=== PATIENT | female | born 1965 | race Caucasian/White ===

== ENCOUNTER 2018-06-23 13:53 | Emergency (ER) | payer OTHER ==
[2018-06-23] MEDS ORDERED: Ibuprofen 600 MG Tab PO ONE (14:50)
--- NOTE | 2018-06-23 14:54 | EDM.PDOC ---
ED HPI GENERAL MEDICAL PROBLEM - General Chief Complaint: Lower Extremity Injury/Pain Stated Complaint: LEFT KNEE Time Seen by Provider: 06/23/18 14:51 Source of Information: Reports: Patient History Limitations: Reports: No Limitations - History of Present Illness INITIAL COMMENTS - FREE TEXT/NARRATIVE: Slipped on wet floor at work, twisted left knee, fell to ground. Complains of lateral left knee pain. Onset: Today Location: Reports: Lower Extremity, Left Quality: Reports: Dull Severity: Moderate Worsens with: Reports: Other (ambulation), Movement Associated Symptoms: Reports: No Other Symptoms Treatments SITE MEDICAL DIRECTOR: Reports: Cold Therapy L knee Pain Score (Numeric/FACES): 9 - Related Data Allergies Allergy/AdvReac Type Severity Reaction Status Date / Time No Known Allergies Allergy Verified 06/23/18 13:59 Home Meds: Home Meds Acetaminophen/HYDROcodone [Apison 325-5 MG] 1 - 2 tab PO Q6H PRN #20 tab [Rx] Norethindrone-Ethinyl Estrad [Ortho-Novum 1-35-28 Tablet] 1 tab ASDIRECTED 06/23 [History] 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 History: Musculoskeletal History: Reports: None Neurological History: Reports: Migraines - Infectious Disease History Infectious Disease History: Reports: Chicken Pox - Past Surgical History Musculoskeletal Surgical History: Reports: Other (See Below) Other Musculoskeletal Surgeries/Procedures:: R soot, L wrist Social & Family History - Family History Family Medical History: Noncontributory - Tobacco Use Smoking Status *Q: Never Smoker - Caffeine Use Caffeine Use: Reports: Soda - Recreational Drug Use Recreational Drug Use: No Review of Systems - Review of Systems Review Of Systems: ROS reveals no pertinent complaints other than HPI. ED EXAM, GENERAL - Physical Exam Exam: See Below Exam Limited By: No Limitations General Appearance: Alert, WD/WN, No Apparent Distress Ears: Normal External Exam Nose: Normal Inspection Throat/Mouth: No Airway Compromise Head: Atraumatic, Normocephalic Neck: Full Range of Motion Respiratory/Chest: No Respiratory Distress Peripheral Pulses: 2+: Dorsalis Pedis (L) Extremities: Normal Capillary Refill, Other (tenderness to left lateral knee, no deformity, no laxity) Neurological: Alert, No Motor/Sensory Deficits Psychiatric: Normal Affect, Normal Mood Skin Exam: Warm, Dry, Intact, Normal Color ED TRAUMA EXTREMITY PROCEDURES - Splinting Left Lower Extremity Splint Site: left knee Pre-Procedure NV Status: Normal Post-Procedure NV Status: Normal Splint Material: Other (knee immobilizer) Splint Design: Knee Immobilizer Applied & Form Fitted By: Nurse Provider Post-Splint Application NV Check: NV Status Normal, Good Position Complications: No Course - Vital Signs Last Recorded V/S: Last Vital Signs Temp 36.5 C 06/23/18 13:53 Pulse 79 06/23/18 13:53 Resp 18 06/23/18 13:53 BP 114/54 L 06/23/18 13:53 Pulse Ox 100 06/23/18 13:53 - Orders/Labs/Meds Orders: Active Orders 24 hr Category Date Time Status Knee 3V Lt [CR] Stat Exams 06/23/18 14:50 Taken Meds: Medications Discontinued Medications Generic Name Dose Route Start Last Admin Trade Name Freq PRN Reason Stop Dose Admin Ibuprofen 600 mg 06/23/18 14:50 06/23/18 15:04 Motrin PO 06/23/18 14:51 600 mg ONETIME ONE Administration - Radiology Interpretation Free Text/Narrative:: Left Knee XR: lucenies in the anterior aspect of the proximal tibia diametaphysis consistent with acute nondisplaced fracture. No dislocation. Moderate-sized joint effusion in the suprapatellar bursa. Departure - Departure Time of Disposition: 16:48 Disposition: Home, Self-Care 01 Condition: Good Clinical Impression: Fracture of proximal end of tibia Qualifiers: Encounter type: initial encounter Fracture type: closed Fracture morphology: other fracture Laterality: left Qualified Code(s): S82.192A - Other fracture of upper end of left tibia, initial encounter for closed fracture - Discharge Information *PRESCRIPTION DRUG MONITORING PROGRAM REVIEWED*: Yes *COPY OF PRESCRIPTION DRUG MONITORING REPORT IN PATIENT ANNABELLA: Not Applicable Prescriptions: Acetaminophen/HYDROcodone [Apison 325-5 MG] 1 - 2 tab PO Q6H PRN #20 tab PRN Reason: Pain Instructions: Crutch Use, Adult, [id number], How to Use a Knee Immobilizer, [id number], Tibial Fracture, Adult Referrals: Heath Michael MD [Primary Care Provider] - Villeda,Mayo D, DO [Physician] - Forms: ED Department Discharge, ED Return to Work/School Form Additional Instructions: Fill prescription for Apison and take as directed. Ice the area affected. Elevate the leg. Do not bear weight on the left leg. Follow up with Dr. Mayo Villeda (orthopedic surgery) in 2 days. Return to the ER if symptoms worsen. - My Orders Last 24 Hours: My Active Orders 06/23/18 14:50 Knee 3V Lt [CR] Stat - Assessment/Plan Last 24 Hours: My Active Orders 06/23/18 14:50 Knee 3V Lt [CR] Stat
[2018-06-23] MEDS ORDERED: Acetaminophen/HYDROcodone 325-5 MG Tab PO ONE (17:08)
== END 2018-06-23 17:28 | disposition home or self-care (01) ==
LOC: FB.ED 13:53
DX: S82.192A Other fracture of upper end of left tibia, initial encounter for closed fracture (principal); W01.0XXA Fall on same level from slipping, tripping and stumbling without subsequent striking against object, initial encounter; X50.1XXA Overexertion from prolonged static or awkward postures, initial encounter; Y99.0 Civilian activity done for income or pay
CPT/HCPCS: 29505; 73562-LT; 99283; A9270-GY

== ENCOUNTER 2018-07-01 18:00 | Emergency (ER) | payer OTHER ==
--- NOTE | 2018-07-01 18:39 | EDM.PDOC ---
ED HPI GENERAL MEDICAL PROBLEM - General Chief Complaint: Lower Extremity Injury/Pain Stated Complaint: L LEG COLD, POST BREAK Time Seen by Provider: 07/01/18 18:15 Source of Information: Reports: Patient History Limitations: Reports: No Limitations - History of Present Illness INITIAL COMMENTS - FREE TEXT/NARRATIVE: c/o cool foot pt slipped on liquid on floor at work 8d ago, had used a long leg immobilizer for L fibula fx, then changed to hinged knee brace by Dr Villeda several days later using crutches and NWB as instructed, has f/u apt in 8d foot felt cool and she became worried, wearing brace in bed altho told she does not need to, takes brace off to shower brace fitting well, is on her feet at work, not working currently Left Knee Pain Score (Numeric/FACES): 2 - Related Data Allergies Allergy/AdvReac Type Severity Reaction Status Date / Time No Known Allergies Allergy Verified 07/01/18 18:29 Home Meds: Home Meds Acetaminophen/HYDROcodone [[place] 325-5 MG] 1 - 2 tab PO Q6H PRN #20 tab [Rx] Norethindrone-Ethinyl Estrad [Ortho-Novum 1-35-28 Tablet] 1 tab ASDIRECTED 06/23 [History] Aspirin [Ecotrin] 325 mg PO ASDIRECTED 07/01/18 [History] Past Medical History [employer] AD[employer]ISTR[employer] 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: Musculoskeletal History: Reports: None Neurological History: Reports: Migraines - Infectious Disease History Infectious Disease History: Reports: Chicken Pox - Past Surgical History Musculoskeletal Surgical History: Reports: Other (See Below) Other Musculoskeletal Surgeries/Procedures:: R soot, L wrist Social & Family History - Family History Family Medical History: Noncontributory - Caffeine Use Caffeine Use: Reports: Soda Review of Systems - Review of Systems Review Of Systems: See Below Constitutional: Reports: No Symptoms Eyes: Reports: No Symptoms Ears: Reports: No Symptoms Nose: Reports: No Symptoms Mouth/Throat: Reports: No Symptoms Respiratory: Reports: No Symptoms Cardiovascular: Reports: No Symptoms GI/Abdominal: Reports: No Symptoms Genitourinary: Reports: No Symptoms Musculoskeletal: Reports: Leg Pain Skin: Reports: No Symptoms Neurological: Reports: No Symptoms Psychiatric: Reports: No Symptoms ED EXAM, GENERAL - Physical Exam Exam: See Below Exam Limited By: No Limitations General Appearance: Alert, WD/WN, No Apparent Distress Extremities: Other (2+ DP pulses b/l, feet slightly cool without socks or shoes , L fibula minimal tender at proximal 1/3, brace in place over jeans and fitting well) Course - Vital Signs Last Recorded V/S: Last Vital Signs Temp 35.8 C 07/01/18 18:00 Pulse 73 07/01/18 18:00 Resp 16 07/01/18 18:00 BP 132/74 07/01/18 18:00 Pulse Ox 100 07/01/18 18:00 Departure - Departure Time of Disposition: 18:33 Disposition: Home, Self-Care 01 Condition: Good Clinical Impression: Fibula fracture Qualifiers: Encounter type: subsequent encounter Fracture type: closed Laterality: left - Discharge Information *PRESCRIPTION DRUG MONITORING PROGRAM REVIEWED*: Not Applicable *COPY OF PRESCRIPTION DRUG MONITORING REPORT IN PATIENT ANNABELLA: Not Applicable Instructions: How to Use a Knee Brace Referrals: Heath Michael MD [Primary Care Provider] - Additional Instructions: Continue aspirin 325 mg 1 tab daily. As needed, may also take acetaminophen 500 mg 2 tabs and ibuprofen 200 mg 3 tabs 4 times a day for pain. Use knee brace when out of bed, as you have been doing. See Dr Villeda in 8 days as scheduled.
[2018-07-01] MEDS ORDERED: Ketorolac 60 MG/2 ML SDV IM ONE (19:10)
[2018-07-01] MEDS ORDERED: Amoxicillin 500 MG Cap PO ONE (19:10)
== END 2018-07-01 18:45 | disposition home or self-care (01) ==
LOC: FB.ED 18:00
DX: S82.192D Other fracture of upper end of left tibia, subsequent encounter for closed fracture with routine healing (principal); W01.0XXD Fall on same level from slipping, tripping and stumbling without subsequent striking against object, subsequent encounter; X50.1XXD Overexertion from prolonged static or awkward postures, subsequent encounter
CPT/HCPCS: 99283